=== PATIENT | female | born 1950 | race Caucasian/White ===

== ENCOUNTER 2025-03-29 09:14 | Outpatient (CLI) | payer MEDICARE, SELFPAY ==
--- NOTE | ~2025-03-29 | MM_ITS ---
EXAMINATION: MM screening [facility] BI w chelsy HISTORY: Screening TECHNIQUE: Craniocaudal and mediolateral oblique 3-D tomosynthesis images were obtained and synthetic 2-D images were generated. CAD analysis was submitted and interpreted. COMPARISON: No prior mammogram is available for comparison at this institution. BREAST PARENCHYMAL COMPOSITION: Not dense: There are scattered areas of fibroglandular density. FINDINGS: There is no mammographic evidence for malignancy in the right breast. There is a focal asymmetry in the upper central aspect of the left breast, middle third. IMPRESSION: 1. Focal left breast asymmetry upper central breast, middle third. 2. Additional mammographic views and possible breast ultrasound are recommended. BI-RADS Category 0: Incomplete: Needs additional imaging evaluation. Reviewed, dictated and finalized at location B. ER IMPRESSION: 1. Focal left breast asymmetry upper central breast, middle third. 2. Additional mammographic views and possible breast ultrasound are recommended . BI-RADS Category 0: Incomplete: Needs additional imaging evaluation.
--- OUTSIDE RECORDS SUMMARY | 2025-03-29 09:45 | XMS_ITS | Patient Health Record ---
Author Organization [facility] As Expandly Address [address] [place] [address] Care Team Providers Care Cutter Helper Name Role Phone Jocelyne Espino, Ebonie Primary Care Provider Unavail able Pop Oquendo Unavailable [phone] Allergies Allergen (clinical drug ingredient) Drug/Non Drug Allergy documented on EMR Reaction Allergy Type Onset Date Status codeine Codeine Unknown Drug Allergy 08/09/2023 Active Substance with 1-bggxwnk-1-methylgluta ryl-coenzyme A reductase inhibitor mechanism of action (substance) Statins Unknown Drug Allergy Active Reason For Referral No Information Medications Medication SIG (Take, Route, Frequency, Duration) Notes Start Date End Date Status Estradiol 1 MG Tablet TAKE 1 TABLET BY MOUTH DAILY Oral; Duration: 90 Days Active hydrOXYzine HCl 10 MG Tablet 1 tablet Oral three times a day; Duration: 30 days Active Furosemide 40 MG Tablet TAKE 1 TABLET BY MOUTH DAILY DIRECTED. OK TO TAKE 1 TABLET IN ANTIICPATION OF HIGH BLOOD PRESSURE AND HIGH SODIUM MEAL. NO Oral; Duration: 30 Days Active Zolpidem Tartrate 10 MG Tablet TAKE 1 TABLET BY MOUTH EVERY NIGHT; Duration: 30 08/31/2024 Active buPROPion HCl ER (XL) 150 MG Tablet Extended Release 24 Hour 1 tablet in the morning Orally Once a day; Duration: 90 days Active Desvenlafaxine Succinate ER 100 MG Tablet Extended Release 24 Hour TAKE 1 TABLET BY MOUTH DAILY; Duration: 90 Active Lisinopril 10 MG Tablet TAKE 1 TABLET BY MOUTH DAILY Oral; Duration: 90 Days Active LORazepam 0.5 MG Tablet Oral; Duration: 30 Days Not-Taking Desvenlafaxine Succinate ER 100 MG Tablet Extended Release 24 Hour 1 tablet Oral Once a day; Duration: 90 days AzraJuan Manuel godfreysteve Fink 08/17/2024 10:37:51 AM CDT > Active Social History Tobacco Use: Social History Observation Description Date Details (start date - stop date) Never Smoker NA - NA Sex Assigned At : Social History Observation Description Sex Assigned At Female Social History Miscellaneous: Social Info Question Answer Notes Advance Care Planning Are you your own decision-maker Yes Do you have Power of Indoor Landscaper/Gardener for Health or Medi josefina? Yes Do you have a power of corporate attorney for health? Yes Do you have power of corporate attorney for Medical ? Yes Tobacco Use: Social Info Question Answer Notes Tobacco Control (Standard) Tobacco use: Nonsmoker Additional Details Category Social Info Options Details Migrated Social History Migrated Social History Alcohol Intake: None 08/09/2023,Tobacco Years: Former smoker 08/09/2023,Smoking Status: 10 08/09/2023 Problems Problem Type SNOMED Code ICD Code Onset Dates Problem Status W/U Status Risk Notes Problem Moderate recurrent major depression (64836501) Major depressive disorder, recurrent, moderate (F33.1) Active confirmed Problem Generalized anxiety disorder (96509466) Generalized anxiety disorder (F41.1) Active confirmed Problem Primary insomnia (3260354) Primary insomnia (F51.01) Active confirmed Problem Benign paroxysmal positional vertigo (330665620) Benign paroxysmal vertigo, unspecified ear (H81.10) 3 Active confirmed Problem Essential hypertension (37575573) Essential (primary) hypertension (I10) 3 Active confirmed Vital Signs Heart Rate 78 /min 07/31/2024 Height-cm 168.91 cm 07/31/2024 Blood pressure diastolic 80 mm Hg 07/31/2024 Weight-kg 66.68 kg 07/31/2024 Height 66.5 in 07/31/2024 Blood pressure systolic 139 mm Hg 07/31/2024 Weight 147 lbs 07/31/2024 BMI 23.37 kg/m2 07/31/2024 Encounters Encounter Location Date Provider Diagnosis [facility] [employer] [facility] [address] [place] [address] 05/03/2024 Pop Oquendo Major depressive disorder, recurrent, moderate F33.1 ; Essential (primary) hypertension I10 ; Benign paroxysmal vertigo, unspecified ear H81.10 ; Generalized anxiety disorder F41.1 and Primary insomnia F51.01 [facility], [facility] [address] [place] [address] 07/31/2024 Pop Azra Encounter for screen ing for cardiovascular disorders Z13.6 ; Encounter for screening for depression Z13.31 ; Major depressive disorder, recurrent, moderate F33.1 ; Essential (primary) hypertension I10 ; Benign paroxysmal vertigo, unspecified ear H81.10 ; Generalized anxiety disorder F41.1 and Primary insomnia F51.01 [facility], [facility] [address] [place] [address] 08/17/2024 Pop Azra Encounter for screen ing for depression Z13.31 ; Encounter for screening for cardiovascular disorders Z13.6 ; Major depressive disorder, recurrent, moderate F33.1 ; Essential (primary) hypertension I10 ; Benign paroxysmal vertigo, unspecified ear H81.10 ; Generalized anxiety disorder F41.1 and Primary insomnia F51.01 [facility] [employer], [facility] [address] [place] [address] 06/29/2024 Pop Azra Primary insomnia F51 .01 [facility] [employer], [facility] [address] [place] [address] 05/25/2024 Pop Azra Primary insomnia F51 .01 [facility], [facility] [address] [place] [address] 05/27/2024 Pop Azra Primary insomnia F51 .01 [facility], [facility] [address] [place] [address] 05/27/2024 Pop Azra Primary insomnia F51 .01 [facility], [facility] [address] [place] [address] 05/29/2024 Pop Azra Primary insomnia F51 .01 [facility], [facility] [address] [place] [address] 06/27/2024 Pop Azra Primary insomnia F51 .01 [facility] [employer], [facility] [address] [place] [address] 06/28/2024 Pop Azra [facility], [facility] [address] [place] [address] 06/28/2024 Pop Azra Primary insomnia F51 .01 [facility], [facility] [address] [place] [address] 08/08/2024 Pop Azra [facility], [facility] [address] [place] [address] 08/08/2024 Pop Azra [facility], [facility] [address] [place] [address] 08/08/2024 Pop Azra [facility], [facility] [address] [place] [address] 08/11/2024 Pop Azra [facility], [facility] [address] [place] [address] 08/15/2024 Pop Azra [facility], [facility] [address] [place] [address] 08/15/2024 Pop Azra [facility], [facility] [address] [place] [address] 08/16/2024 Pop Azra Generalized anxiety disorder F41.1 [facility], [facility] [address] [place] [address] 08/16/2024 Pop Azra [facility], [facility] [address] [place] [address] 08/16/2024 Pop Azra [facility], [facility] [address] [place] [address] 08/16/2024 Pop Azra [facility], [facility] [address] [place] [address] 08/16/2024 Pop Azra [facility], [facility] [address] [place] [address] 08/16/2024 Pop Azra Generalized anxiety disorder F41.1 [facility], [facility] [address] [place] [address] 08/17/2024 Pop Azra [facility], [facility] [address] [place] [address] 08/17/2024 Pop Azra [facility], [facility] [address] [place] [address] 08/26/2024 Pop Azra [facility], [facility] [address] [place] [address] 08/29/2024 Pop Azra [facility], [facility] [address] [place] [address] 08/29/2024 Pop Azra [facility], [facility] [address] [place] [address] 08/30/2024 Pop Azra [facility], [facility] [address] [place] [address] 08/30/2024 Pop Azra [facility], [facility] [address] [place] [address] 08/30/2024 Pop Azra [facility], [facility] [address] [place] [address] 08/30/2024 Pop [facility], [facility] [address] [place] [address] 08/30/2024 Pop [facility], [facility] [address] [place] [address] 08/30/2024 Pop [facility], [facility] [address] [place] [address] 08/30/2024 Pop [facility], [facility] [address] [place] [address] 08/31/2024 Pop Azra Primary insomnia F51 .01 [facility], [facility] [address] [place] [address] 08/31/2024 Pop Azra [facility], [facility] [address] [place] [address] 08/31/2024 Pop Azra [facility], [facility] [address] [place] [address] 08/31/2024 Pop Azra [facility], [facility] [address] [place] [address] 08/31/2024 Pop Azra [facility], [facility] [address] [place] [address] 08/31/2024 Popsteve Rossam [facility], [facility] [address] [place] [address] 08/31/2024 [facility] [address] [place] [address] 08/31/2024 [facility] [address] [place] [address] 08/31/2024 Popsteve Oquendo Assessments Encounter Date Diagnosis (ICD Code) Assessment Notes Treatment Notes Treatment Clinical Notes Section Notes 05/03/2024 Major depressive disorder, recurrent, moderate (ICD-10 - F33.1) Electronic Prior Authorization was requested for Zolpidem Tartrate 10 MG Tablet. Provider can order medication once approval received. Depression and Anxiety - Plan: - Continue desvenlafaxine 100 mg daily. - Continue bupropion extended-releas e until May 16. - Start vilazodone on May 17: half a tablet once a day for 8 days, then one tablet once a day thereafter. Take with food for proper absorption. - Hydroxyzine: take as needed up to 3 times a day for anxiety. Grief and Coping - Plan: - Encourage patient to continue seeking support from friends and family. - Consider re-initiating counseling if symptoms worsen or do not improve with medication adjustments. Atrial Fibrillation - Plan: - Monitor and manage as per cardiology recommendations . - Avoid citalopram due to potential cardiac issues. Follow-up - Plan: - Schedule a follow-up appointment in July to assess the effectiveness of the new medication regimen. - Encourage the patient to seek help sooner if needed, and remind them that they can walk in if necessary. - Patient to start new Medicare Advantage plan in May, which may affect medication coverage. 05/25/2024 Primary insomnia (ICD-10 - F51.01) 05/27/2024 Primary insomnia (ICD-10 - F51.01) 05/27/2024 Primary insomnia (ICD-10 - F51.01) 05/29/2024 Primary insomnia (ICD-10 - F51.01) 06/27/2024 Primary insomnia (ICD-10 - F51.01) 06/28/2024 Primary insomnia (ICD-10 - F51.01) 06/29/2024 Primary insomnia (ICD-10 - F51.01) 07/31/2024 Encounter for screening for cardiovascular disorders (ICD-10 - Z13.6) 08/16/2024 Generalized anxiety disorder (ICD-10 - F41.1) 08/16/2024 Generalized anxiety disorder (ICD-10 - F41.1) 08/17/2024 Encounter for screening for depression (ICD-10 - Z13.31) 08/31/2024 Primary insomnia (ICD-10 - F51.01) 08/17/2024 Encounter for screening for cardiovascular disorders (ICD-10 - Z13.6) 07/31/2024 Encounter for screening for depression (ICD-10 - Z13.31) 05/03/2024 Essential (primary) hypertension (ICD-10 - I10) Depression and Anxiety - Plan: - Continue desvenlafaxine 100 mg daily. - Continue bupropion extended-releas e until May 16. - Start vilazodone on May 17: half a tablet once a day for 8 days, then one tablet once a day thereafter. Take with food for proper absorption. - Hydroxyzine: take as needed up to 3 times a day for anxiety. Grief and Coping - Plan: - Encourage patient to continue seeking support from friends and family. - Consider re-initiating counseling if symptoms worsen or do not improve with medication adjustments. Atrial Fibrillation - Plan: - Monitor and manage as per cardiology recommendations . - Avoid citalopram due to potential cardiac issues. Follow-up - Plan: - Schedule a follow-up appointment in July to assess the effectiveness of the new medication regimen. - Encourage the patient to seek help sooner if needed, and remind them that they can walk in if necessary. - Patient to start new Medicare Advantage plan in May, which may affect medication coverage. 05/03/2024 Benign paroxysmal vertigo, unspecified ear (ICD-10 - H81.10) Depression and Anxiety - Plan: - Continue desvenlafaxine 100 mg daily. - Continue bupropion extended-releas e until May 16. - Start vilazodone on May 17: half a tablet once a day for 8 days, then one tablet once a day thereafter. Take with food for proper absorption. - Hydroxyzine: take as needed up to 3 times a day for anxiety. Grief and Coping - Plan: - Encourage patient to continue seeking support from friends and family. - Consider re-initiating counseling if symptoms worsen or do not improve with medication adjustments. Atrial Fibrillation - Plan: - Monitor and manage as per cardiology recommendations . - Avoid citalopram due to potential cardiac issues. Follow-up - Plan: - Schedule a follow-up appointment in July to assess the effectiveness of the new medication regimen. - Encourage the patient to seek help sooner if needed, and remind them that they can walk in if necessary. - Patient to start new Medicare Advantage plan in May, which may affect medication coverage. 07/31/2024 Major depressive disorder, recurrent, moderate (ICD-10 - F33.1) Electronic Prior Authorization was requested for Zolpidem Tartrate 10 MG Tablet. Provider can order medication once approval received. 08/17/2024 Major depressive disorder, recurrent, moderate (ICD-10 - F33.1) Electronic Prior Authorization was requested for Zolpidem Tartrate 10 MG Tablet. Provider can order medication once approval received. 08/17/2024 Essential (primary) hypertension (ICD-10 - I10) 07/31/2024 Essential (primary) hypertension (ICD-10 - I10) 05/03/2024 Generalized anxiety disorder (ICD-10 - F41.1) Depression and Anxiety - Plan: - Continue desvenlafaxine 100 mg daily. - Continue bupropion extended-releas e until May 16. - Start vilazodone on May 17: half a tablet once a day for 8 days, then one tablet once a day thereafter. Take with food for proper absorption. - Hydroxyzine: take as needed up to 3 times a day for anxiety. Grief and Coping - Plan: - Encourage patient to continue seeking support from friends and family. - Consider re-initiating counseling if symptoms worsen or do not improve with medication adjustments. Atrial Fibrillation - Plan: - Monitor and manage as per cardiology recommendations . - Avoid citalopram due to potential cardiac issues. Follow-up - Plan: - Schedule a follow-up appointment in July to assess the effectiveness of the new medication regimen. - Encourage the patient to seek help sooner if needed, and remind them that they can walk in if necessary. - Patient to start new Medicare Advantage plan in May, which may affect medication coverage. 05/03/2024 Primary insomnia (ICD-10 - F51.01) Depression and Anxiety - Plan: - Continue desvenlafaxine 100 mg daily. - Continue bupropion extended-releas e until May 16. - Start vilazodone on May 17: half a tablet once a day for 8 days, then one tablet once a day thereafter. Take with food for proper absorption. - Hydroxyzine: take as needed up to 3 times a day for anxiety. Grief and Coping - Plan: - Encourage patient to continue seeking support from friends and family. - Consider re-initiating counseling if symptoms worsen or do not improve with medication adjustments. Atrial Fibrillation - Plan: - Monitor and manage as per cardiology recommendations . - Avoid citalopram due to potential cardiac issues. Follow-up - Plan: - Schedule a follow-up appointment in July to assess the effectiveness of the new medication regimen. - Encourage the patient to seek help sooner if needed, and remind them that they can walk in if necessary. - Patient to start new Medicare Advantage plan in May, which may affect medication coverage. 08/17/2024 Benign paroxysmal vertigo, unspecified ear (ICD-10 - H81.10) 07/31/2024 Benign paroxysmal vertigo, unspecified ear (ICD-10 - H81.10) 08/17/2024 Generalized anxiety disorder (ICD-10 - F41.1) 07/31/2024 Generalized anxiety disorder (ICD-10 - F41.1) 07/31/2024 Primary insomnia (ICD-10 - F51.01) 08/17/2024 Primary insomnia (ICD-10 - F51.01) 07/31/2024 Trena Dill, a , presents with ongoing depression and grief, exacerbated by approaching anniversary dates related to her late . Major Depressive Disorder Assessment: Patient reports persistent depressed mood, particularly intensified by approaching anniversary dates related to her late (wedding anniversary, birthdays). She expresses frustration and difficulty coping, stating I don't feel like I'm getting better. Despite previous counseling and grief therapy, she struggles to consistently apply learned coping strategies. Current medications include bupropion XL 150mg, desvenlafaxine 100mg, and as-needed hydroxyzine and zolpidem. Patient reports financial constraints recently prevented her from obtaining vilazodone. Plan: - Continue bupropion XL 150mg daily for approximately 4 more weeks - Continue desvenlafaxine 100mg daily - Refill hydroxyzine for anxiety: 1 tablet TID PRN - Continue current zolpidem for insomnia - Defer initiation of vilazodone until next appointment in 4 weeks - Schedule follow-up appointment in 4 weeks to reassess mood and medication regimen - Encouraged patient to utilize previously learned coping strategies from counseling and grief therapy Grief Assessment: Patient is experiencing ongoing grief related to the loss of her in May. She reports particular difficulty around significant dates ( of certain ) associated with her relationship. The approaching wedding anniversary (August 02) and her birthday (September [birth year]) are causing increased emotional distress. Patient describes grief as torture and expresses frustration with the ongoing impact on her mood and daily functioning. Plan: - Continue current medication regimen to support mood stability during this challenging period - Encourage continued use of coping strategies learned in previous grief counseling - Reassess need for additional grief support at next appointment The note is transcribed using speech recognition software. It is a reflection of a visit with the patient. It might have some inaccuracy, including medication names and transcribing errors, though efforts have been made to correct them. 08/17/2024 Trena Dill, a patient with a history of anxiety and panic attacks, presents with complaints of medication refill issues, ongoing panic attacks, and sleep disturbances. Anxiety Disorder with Panic Attacks Assessment: Patient reports experiencing panic attacks and increased anxiety due to running out of hydroxyzine since July 31. She describes waking up crying in the mornings and crying for the past 3 days. The patient's anxiety appears to be exacerbated by frustration over medication refill issues. Historical context indicates long-term use of hydroxyzine for anxiety management, with the last filled prescription containing over 200 tablets in June 2023. Plan: - Refill hydroxyzine prescription (sent during the visit) - Patient to take hydroxyzine 1-3 times daily as needed for anxiety - Advised patient to monitor for text message confirmations of future prescription submissions - Patient declined follow-up appointment scheduling at this time Sleep Disturbance Assessment: Patient reports not sleeping well and waking up crying in the mornings, likely related to anxiety and lack of medication. Plan: - Anticipate improvement in sleep with reinstatement of hydroxyzine - Monitor sleep patterns at next follow-up Disclaimer: This note has been transcribed using speech recognition software and serves as a reflection of the patient's visit. While efforts have been made to ensure accuracy, there may be errors, including river rat inaccuracies and misspellings of medication names. This document should not be considered a verbatim record, and any discrepancies should be verified with the provider. Plan Of Treatment Future Test Test Name Order Date COMPREHENSIVE METABOLIC PANEL (34274) Insurance Providers Payer Name Payer Address Payer Phone Subscriber Number Group Number Insured Name Patient Relationship to Insured Coverage Start Date Coverage End Date [place] [address] [place] [address] [id number] FUENTES BERTHAE Self - patient is the insured [facility] [address] [place] [address] [id number] BERTHA DILLE Self - patient is the insured Medical (General) History Medical History History ICD Code Problems: Generalized anxiety disorder Moderate recurrent major depression Primary insomnia Surgical History Surgery Date(Month/Year) Hysterectomy (86473) Tonsilectomy/adenoids Appendectomy (25211) Any surgical history Endometrial ablation (08831)
== END 2025-03-29 09:15 | disposition home or self-care (01) ==
LOC: ANHFOHIMG 09:18
PROVIDERS: PCP Internal Medicine; Visit Provider Internal Medicine
DX: Z12.31 Encounter for screening mammogram for malignant neoplasm of breast (principal); R92.8 Other abnormal and inconclusive findings on diagnostic imaging of breast
CPT/HCPCS: 77063; 77067